=== PATIENT | female | born 1980 | race Caucasian/White ===

== ENCOUNTER 2016-10-15 06:39 | Emergency (ER) | payer MEDICAID ==
[2014-01-20 06:19] VITALS: BMI 30.8
[~2016-10-15 06:39] MED LIST: ALLEGRA-D1 TAB.SR . PO; HYDROCODONE-APA1 TAB PO; ROBAXIN-750750 MG PO; ULTRAM50 MG PO; VITAMIN D31000 UNIT PO; VOLTAREN75 MG PO
[2016-10-15 07:53] LABS: ALBUMIN 3.6 g/dL (3.4-5.0); ALKALINE PHOSPHATASE 72 U/L (46-116); ALT (SGPT) 20 U/L (10-68); AMYLASE - SERUM 63 U/L (25-115); BILIRUBIN - TOTAL 0.12 mg/dL (0.2-1.3); CALC OSMOLALITY 286 mosm/kg (275-300); CALCIUM 8.8 mg/dL (8.5-10.1); CARBON DIOXIDE 24.4 mmol/L (21.0-32.0); CHLORIDE - SERUM 105 mmol/L (98-107); CREATININE - SERUM 0.9 mg/dL (0.6-1.3); GLUCOSE 175 mg/dL (74-106); LIPASE 119 U/L (73-393); POTASSIUM - SERUM 3.6 mmol/L (3.5-5.1); PROTEIN - SERUM 7.3 g/dL (6.4-8.2); SODIUM 142 mmol/L (136-145); UREA NITROGEN 12 mg/dL (7-18); eGFR NON AFRICAN AMERICAN 75 mL/min (90-120)
[2016-10-15 08:23] LABS: APPEARANCE CLEAR (CLEAR); BILIRUBIN NEGATIVE (NEGATIVE); COLOR YELLOW (YELLOW); GLUCOSE 100 mg/dL (NEGATIVE); KETONE NEGATIVE (NEGATIVE); LEUKOCYTE ESTERASE NEGATIVE (NEGATIVE); NITRITE NEGATIVE (NEGATIVE); PROTEIN NEGATIVE (NEGATIVE); SPECIFIC GRAVITY 1.025 (1.005-1.020); UROBILINOGEN NORMAL (NORMAL)
[2016-10-15 08:43] LABS: HCG URINE NEGATIVE (NEGATIVE)
[2016-10-15 09:59] LABS: BASOPHILS 0.4 % (0.0-2.0); EOSINOPHILS 1.3 % (0-7); HEMATOCRIT 42.2 % (36.0-48.0); HEMOGLOBIN 13.9 g/dL (12-16); IMMATURE GRANULOCYTES 0.3 % (0-5); MCH 30.6 pg (26.0-34.0); MCHC 32.9 g/dL (31.0-37.0); MEAN PLATELET VOLUME 10.3 fL (7.4-10.4); MONOCYTES 8.3 % (2-11); NEUTROPHILS 77.7 % (40-80); PLATELET COUNT 271 10x3/uL (130-400); RBC 4.54 10x6/uL (4.00-5.40); RDW 12.8 % (11.5-14.5); WBC 14.4 10x3/uL (4.8-10.8)
== END 2016-10-15 14:47 | disposition home or self-care (01) ==
LOC: D.ER 06:39
PROVIDERS: Emergency Medicine; Family Medicine
DX: N20.1 Calculus of ureter (principal)